=== PATIENT | female | born 1985 | race Caucasian/White ===

== ENCOUNTER 2018-12-31 17:03 | Emergency (ER) | payer OTHER ==
--- NOTE | 2018-12-31 17:13 | ER Document Report ---
ED Medical Screen (RME) - General Chief Complaint: Abdominal Pain Stated Complaint: RIGHT SIDE/ABDOMINAL PAIN Time Seen by Provider: 12/31/18 17:09 Primary Care Provider: MOON AVELAR CNM [Primary Care Provider] - Follow up as needed Mode of Arrival: Ambulatory Information source: Patient Notes: 33-year-old female presents to ED for complaint of right-sided abdominal pain. She states that she went today to the [facility] to get her 8-week baby ultrasound and when the doctor rolled over the right side of her abdomen she about shot off the table due to the pain. She states the vet tech did a transvaginal ultrasound she then finished her appointment and the right center to the hospital to get a CAT scan of the abdomen due to the right-sided abdominal pain the wind turbine technician refused to do the CAT scan and a transabdominal ultrasound was ordered. The transabdominal ultrasound did not show an appendix or any other abnormalities except for tenderness to palpation to the right lower quadrant. Patient was sent to the emergency room for further evaluation. She was is is a history of second patient is 2 para 1 I have greeted and performed a rapid initial assessment of this patient. A comprehensive ED assessment and evaluation of the patient, analysis of test results and completion of medical decision making process will be conducted by an additional ED providers. TRAVEL OUTSIDE OF THE [place] IN LAST 30 DAYS: No Doctor's Discharge - Discharge Referrals: MOON AVELAR CNM [Primary Care Provider] - Follow up as needed
[2018-12-31 17:53] LABS: ABSOLUTE LYMPHOCYTES (AUTO) 3.2 10^3/uL (0.5-4.7); ABSOLUTE MONOCYTES (AUTO) 0.6 10^3/uL (0.1-1.4); ABSOLUTE NEUT (AUTO) 5.8 10^3/uL (1.7-8.2); BASOPHILS % (AUTO) 0.2 % (0-2); EOSINOPHILS % (AUTO) 0.2 % (0-6); HEMATOCRIT 41.3 % (36.0-47.0); HEMOGLOBIN 14.5 g/dL (12.0-15.5); LYMPHOCYTES % (AUTO) 33.2 % (13-45); MEAN CORPUSCULAR HEMOGLOBIN 29.1 pg (27.0-33.4); MEAN CORPUSCULAR VOLUME 83 fl (80-97); MONOCYTES % (AUTO) 6.5 % (3-13); PLATELET COUNT 216 10^3/uL (150-450); RED BLOOD COUNT 4.97 10^6/uL (3.72-5.28); RED CELL DISTRIBUTION WIDTH 12.4 % (11.5-14.0); SEGMENTED NEUTROPHILS % (AUTO) 59.9 % (42-78); TOTAL CELLS COUNTED % (AUTO) 100 %; WHITE BLOOD COUNT 9.6 10^3/uL (4.0-10.5)
[2018-12-31 18:01] LABS: APPEARANCE,URINE CLOUDY; BILIRUBIN,URINE NEGATIVE (NEGATIVE); COLOR,URINE YELLOW; GLUCOSE, URINE NEGATIVE (NEGATIVE); KETONES,URINE NEGATIVE (NEGATIVE); PROTEIN,URINE NEGATIVE (NEGATIVE); URINE SPECIFIC GRAVITY 1.011; UROBILINOGEN,URINE NEGATIVE mg/dL (<2.0)
[2018-12-31 18:20] LABS: ALBUMIN 4.5 g/dL (3.5-5.0); ALKALINE PHOSPHATASE 60 U/L (38-126); ANION GAP 10 (5-19); ASPARTATE AMINO TRANSFERASE 22 U/L (14-36); BILIRUBIN,DIRECT 0.1 mg/dL (0.0-0.4); BILIRUBIN,TOTAL 0.3 mg/dL (0.2-1.3); BLOOD UREA NITROGEN 10 mg/dL (7-20); CALCIUM 9.8 mg/dL (8.4-10.2); CARBON DIOXIDE 26 mmol/L (22-30); CHLORIDE 104 mmol/L (98-107); GLUCOSE 89 mg/dL (75-110); POTASSIUM 4.5 mmol/L (3.6-5.0); TOTAL PROTEIN 7.1 g/dL (6.3-8.2)
--- NOTE | 2018-12-31 19:43 | ER Document Report ---
ED GI/ - General Mode of Arrival: Ambulatory TRAVEL OUTSIDE OF THE [place] IN LAST 30 DAYS: No <PROMISE HOOPER - Last Filed: 12/31/18 20:19> <HALEYBRITANY - Last Filed: 12/31/18 21:30> - General Chief Complaint: Abdominal Pain Stated Complaint: RIGHT SIDE/ABDOMINAL PAIN Time Seen by Provider: 12/31/18 17:09 Primary Care Provider: MOON AVELAR CNM [Primary Care Provider] - Follow up as needed Notes: Patient is a 33-year-old female presents to the emergency department for right lower abdominal pain. States she has had this pain intermittently since Sunday. States she is currently 8 weeks , G2, P1. States she did go to her [facility] today to get a routine ultrasound on her . States when they were attempting to do the ultrasound they pressed on her right lower quadrant which gave her extreme pain. States she may then stop doing the ultrasound based on pain. States she then underwent a transvaginal ultrasound. States they tried to send her for a CT but based on her being they were unable to do a CT. She is denying any vaginal discharge or dysuria. She is admitting to 2 episodes of diarrhea but is denying any vomiting or fevers. Patient voices she only has pain in her right lower quadrant upon deep palpation. Otherwise is pain-free. Pushes she did go home and start grocery shopping. States the hospital called her and told her she should present to the emergency department as her ultrasound was "irregular." Patient presents to the emergency department for evaluation. (PROMISE HOOPER) - Related Data Allergies/Adverse Reactions: amoxicillin Allergy (Verified 12/31/18 17:21) Sulfa (Sulfonamide Antibiotics) Allergy (Verified 12/31/18 17:21) Past Medical History - General Information source: Patient - Social History Smoking Status: Never Smoker Frequency of alcohol use: None Drug Abuse: None Family History: Reviewed & Not Pertinent Patient has suicidal ideation: No Patient has homicidal ideation: No <PROMISE HOOPER - Last Filed: 12/31/18 20:19> Review of Systems - Review of Systems Constitutional: denies: Fever EENT: No symptoms reported Cardiovascular: No symptoms reported Respiratory: No symptoms reported Gastrointestinal: See HPI Genitourinary: See HPI Female Genitourinary: See HPI Musculoskeletal: No symptoms reported Skin: No symptoms reported Hematologic/Lymphatic: No symptoms reported Neurological/Psychological: No symptoms reported <PROMISE HOOPER - Last Filed: 12/31/18 20:19> Physical Exam <PROMISE HOOPER - Last Filed: 12/31/18 20:19> - Vital signs Vitals: Temp Pulse Resp BP Pulse Ox 98.0 F 81 16 120/74 100 12/31/18 17:23 12/31/18 17:23 12/31/18 17:23 12/31/18 17:23 12/31/18 17:23 - Notes Notes: GENERAL: Alert, interacts well. No acute distress. HEAD: Normocephalic, atraumatic. EYES: Pupils equal, round, and reactive to light. Extraocular movements intact. ENT: Oral mucosa moist, tongue midline. NECK: Full range of motion. Supple. Trachea midline. LUNGS: Clear to auscultation bilaterally, no wheezes, rales, or rhonchi. No respiratory distress. HEART: Regular rate and rhythm. No murmur ABDOMEN: Soft, very deep palpation of right lower quadrant does exhibit pain. Otherwise abdominal exam is benign. No pelvic pain noted bilaterally non- distended. Bowel sounds present in all 4 quadrants. EXTREMITIES: Moves all 4 extremities spontaneously. No edema, normal radial and dorsalis pedis pulses bilaterally. No cyanosis. BACK: no cervical, thoracic, lumbar midline tenderness. No saddle anesthesia, normal distal neurovascular exam. No CVA tenderness noted bilaterally NEUROLOGICAL: Alert and oriented x3. Normal speech. cranial nerves II through XII grossly intact. PSYCH: Normal affect, normal mood. SKIN: Warm, dry, normal turgor. No rashes or lesions noted. (PROMISE HOOPER) Course - Laboratory Result Diagrams: 12/31/18 17:27 12/31/18 17:27 <PROMISE HOOPER - Last Filed: 12/31/18 20:19> - Laboratory Result Diagrams: 12/31/18 17:27 12/31/18 17:27 <BRITANY DE LEON - Last Filed: 12/31/18 21:30> - Re-evaluation Re-evalutation: 12/31/18 20:19 Laboratory 12/31/18 12/31/18 12/31/18 17:27 17:27 17:27 WBC 9.6 RBC 4.97 Hgb 14.5 Hct 41.3 MCV 83 MCH 29.1 MCHC 35.0 RDW 12.4 Plt Count 216 Lymph % (Auto) 33.2 Hart % (Auto) 6.5 Eos % (Auto) 0.2 Baso % (Auto) 0.2 Absolute Neuts (auto) 5.8 Absolute Lymphs (auto) 3.2 Absolute Monos (auto) 0.6 Absolute Eos (auto) 0.0 Absolute Basos (auto) 0.0 Seg Neutrophils % 59.9 Sodium 140.4 Potassium 4.5 Chloride 104 Carbon Dioxide 26 Anion Gap 10 BUN 10 Creatinine 0.65 Est GFR ( Amer) > 60 Est GFR (MDRD) Non-Af > 60 Glucose 89 Calcium 9.8 Total Bilirubin 0.3 Direct Bilirubin 0.1 Neonat Total Bilirubin Not Reportable Neonat Direct Bilirubin Not Reportable Neonat Indirect Bili Not Reportable AST 22 ALT 16 Alkaline Phosphatase 60 Total Protein 7.1 Albumin 4.5 Beta HCG, Quant 530159.00 H Total Beta HCG POSITIVE Urine Color YELLOW Urine Appearance CLOUDY Urine pH 6.0 Ur Specific [place] 1.011 Urine Protein NEGATIVE Urine Glucose (UA) NEGATIVE Urine Ketones NEGATIVE Urine Blood MODERATE H Urine Nitrite (Reflex) NEGATIVE Urine Bilirubin NEGATIVE Urine Urobilinogen NEGATIVE Leukocyte Esterase Rfl LARGE H Urine RBC (Auto) 2 U Hyaline Cast (Auto) 1 Urine Bacteria (Auto) 3+ Urine WBC (Reflex) 6 Squamous Epi Cells Auto 34 Urine Mucus (Auto) RARE Urine Ascorbic Acid NEGATIVE Currently awaiting ultrasound results. Patient is declining any pain medication at this time. Urine was sent for culture. Patient CARE report transferred to [facility] for continued evaluation. (PROMISE HOOPER) 12/31/18 21:28 On my evaluation patient is standing in the room, requesting to leave now because her ride is leaving. She says states she is getting pain coming different times but it is inconsistent. She has no discomfort at this time. Her ultrasound shows living IUP at 8 weeks with heart beat noted (160), right ovary is visualized is normal, left ovary obscured by bowel gas. Urine nonspecific with contamination. I discussed labs, ultrasound, urinalysis, symptoms with patient. Based on her lack of symptoms, work-up, and symptoms going on for the last several days I have a very low suspicion of acute appendicitis, discussed with patient, further imaging will be performed prior to this. I suspect her symptoms are most likely from her bowel with a couple loose stools, a lot of bowel gas, no normal recent bowel movement. Discussed recommendations in regards to this, follow-up, and return precautions. Patient states understanding and agreement. (BRITANY DE LEON) - Vital Signs Vital signs: Temp Pulse Resp BP Pulse Ox 98.0 F 81 16 120/74 100 12/31/18 17:23 12/31/18 17:23 12/31/18 17:23 12/31/18 17:23 12/31/18 17:23 - Laboratory Laboratory results interpreted by me: 12/31/18 12/31/18 17:27 17:27 Beta HCG, Quant [id number] H Urine Blood MODERATE H Leukocyte Esterase Rfl LARGE H Discharge <PROMISE HOOPER - Last Filed: 12/31/18 20:19> <BRITANY DE LEON - Last Filed: 12/31/18 21:30> - Discharge Clinical Impression: Lower abdominal pain Condition: Stable Disposition: HOME, SELF-CARE Additional Instructions: Laboratory studies are reassuring, your ultrasound shows a normal study with a normal developing at this time. We have a urine culture growing pending results. Recommend you take a stool softener such as Colace, you can take Tylenol and even Benadryl as needed for pain, drink plenty fluids and increase fiber. Up with [facility]. Come back if you are worse including vomiting, severe worsening pain, fever, bleeding, or any other concerning or worsening symptoms. Referrals: MOON AVLEAR CNM [Primary Care Provider] - Follow up as needed
--- NOTE | 2018-12-31 20:48 | RADIOLOGY REPORT (SQ) ---
US PELVIS EXAM DATE: 12/31/2018 5:15 PM MEDICAL CODING SPECIALIST HISTORY: Early . Pelvic pain. COMPARISON: None. TECHNIQUE: Grayscale, color Doppler, and spectral Doppler ultrasound images of the pelvis were obtained. FINDINGS: There is an intrauterine gestational sac with a yolk sac and pole visualized. The crown-rump length is 1.25 cm. The heart rate is 160 bpm. The cervix is 2.4 cm in length. Left ovary is not visualized due to bowel gas. Right ovary has normal color Doppler blood flow and measures 1.9 cm. No pelvic free fluid. IMPRESSION: Single live IUP with estimated gestational age 8 weeks 2 days.
[2018-12-31 21:32] VITALS: BP 116/63
== END 2018-12-31 21:32 | disposition home or self-care (01) ==
LOC: ER 17:03
DX: O26.891 Other specified pregnancy related conditions, first trimester (principal); R10.31 Right lower quadrant pain; R19.7 Diarrhea, unspecified; Z3A.08 8 weeks gestation of pregnancy
CPT/HCPCS: 36415; 76817; 80053; 81001; 84702; 85025; 87086; 93976; 99284

== ENCOUNTER → 2018-12-31 | Outpatient (CLI) | payer OTHER ==
--- NOTE | 2018-12-31 17:07 | RADIOLOGY REPORT (SQ) ---
EXAM DESCRIPTION: U/S ABDOMEN LIMITED W/O DOP COMPLETED DATE/TIME: 12/31/2018 2:44 pm REASON FOR STUDY: RLQ PAIN (R10.31) R10.31 RIGHT LOWER QUADRANT PAIN COMPARISON: None. TECHNIQUE: Dynamic and static grayscale images acquired of the localized site of clinical concern an d recorded on PACS. Additional selected color Doppler and spectral images recorded. SITE OF CONCERN: Right lower quadrant abdomen LIMITATIONS: The examination is limited due to overlying bowel gas. FINDINGS: The right lower quadrant of the abdomen was scanned. The appendix is not visualized sonog raphically. The right ovary is not visualized. The right kidney measures 13.3 x 4.0 x 4.1 cm. Normal echotexture. No hydronephrosis. IMPRESSION: 1. Examination is limited due to overlying bowel gas. 2. The appendix was not visualized sonographically. 3. Examination is otherwise unremarkable sonographically. TECHNICAL DOCUMENTATION: JOB ID: [id number] [employer]- All Rights Reserved Reading location - IP/workstation name: [email or web address]
== END ==
LOC: RAD 12:28
PROVIDERS: ATTEND Obstetrics & Gynecology
DX: O26.891 Other specified pregnancy related conditions, first trimester (principal); R10.31 Right lower quadrant pain; Z3A.08 8 weeks gestation of pregnancy
CPT/HCPCS: 76705